=== PATIENT | female | born 1930 | race Caucasian/White ===

== ENCOUNTER → 2016-05-27 | Day surgery (SDC) | payer MEDICARE ==
[~2016-05-27] MED LIST: ARTIFICIAL TEARS OPTH OINT 3.5 APPLIC/3.5 GM TUBO ONE; BALANCED SALT SOLN OPHT IRRIG 15 ML BTL ONE; ENAL10TA7 PO; GLIM2TAB PO; LACTATED RINGER'S 1000 ML INJ 1,000 ML ONE; LIDOCAINE 1%/EPINEPHrine 1:100,000 SOLN 30 ML VIAL OTHER ONE; METF-324 PO; NEOMYCIN/POLYMYXIN/BACITRACIN OINT 15 GM TUBE ONE; ONDANSETRON HCL 4 MG/2 ML VIAL IV PUSH ONE; PROPOFOL 200 MG/20 ML AMP IV ONE; TAB-TAB PO; THYR30 PO; TRAD5TAB PO; VITA10002 PO; VITA20002 PO; ceFAZolin 2 GM PREMIX 50 ML ONE
--- NOTE | 2016-05-29 11:33 | MP ---
cc: DANIELE MALONE M.D. DATE OF SURGERY 05/27/2016 PREOPERATIVE DIAGNOSES 1. Squamous cell carcinoma left nose. 2. Squamous cell carcinoma left advent. 3. New lesion left eyebrow. 4. New lesion right cheek. POSTOPERATIVE DIAGNOSIS 1. Squamous cell carcinoma left nose. 2. Squamous cell carcinoma left advent. 3. New lesion left eyebrow. 4. New lesion right cheek. OPERATION 1. Excision left nose squamous cell carcinoma, frozen section, full-thickness skin graft from left neck. 1.5 cm diameter 2. Excision squamous cell carcinoma left advent frozen section, full-thickness skin graft from left neck. 2.5x 1.5 cm excision 3. Excision lesion left eyebrow frozen section, full-thickness skin graft with hair bearing skin from the left neck. 1.0 x 0.8 c, 4. Shave biopsy lesion right cheek. 1.[address] Malone ANESTHESIA General INDICATIONS This is an 85-year-old white female with multiple facial biopsy-proven squamous cell carcinomas, two involving the left nose and the left advent, also suspicious lesion on the left eyebrow and right side cheek. The patient agreed to undergo excision frozen section and reconstruction only with a full-thickness skin graft. She understands that the graft may or may not take and overall the graft may not match the anatomic areas, but she is okay with the appearance of the graft in the long run. PROCEDURE The patient was brought to the operating room was given supine position. Anesthesia was started. Prep and drape was done. IV antibiotic had been given. The preoperative markings were reinforced. All the areas were tumesced with lidocaine with epi and saline solution. The specimens were excised full-thickness on the nose, on the advent and on the left eyebrow and they were all suture marked superior. The specimen on the right cheek was shaved partial thickness dermis think shave biopsy. The one on the left nose defect is approximately 1.5 cm in diameter, one on the left advent is 2.5 x 1.5, one on the left brow 1 cm x 0.8 cm and the right cheek excision is about 1.2 cm in diameter. The hemostasis was completed. A full-thickness skin graft was harvested starting from just behind the mastoid going both anterior into the hairline taking hair-bearing skin and the clean skin at the same time. The clean skin was used on the nose. The air bearing skin was used on the eyebrow to try and reconstruct some hair follicles and partial eyebrow hair bearing skin was used to reconstruct the advent. The right cheek was left open. The suturing was done with 5-0 Prolene. The donor site was closed with 4-0 Vicryl internal inverting sutures. The frozen section report issued indicated clear margins on all the first three and no clear residual tumor was noted. On number four, the lesion appeared to be in situ squamous cell carcinoma. The patient was given sterile dressing, was allowed to recover from anesthesia. Intraoperative blood loss less than 10-15 cc. No complications. signed, not fully reviewed MD ZACHARY Augustin/JOSE /11:23 AM /11:23 AM DONNA
== END | disposition home or self-care (01) ==
LOC: ESDC 07:55
PROVIDERS: ATTEND Plastic Surgery
DX: C44.321 Squamous cell carcinoma of skin of nose (principal); C44.329 Squamous cell carcinoma of skin of other parts of face; D04.39 Carcinoma in situ of skin of other parts of face; L57.0 Actinic keratosis
CPT/HCPCS: 00300; 11100; 11442; 11642; 11643; 15240; 15260; 88305; 88331; J0690; J2405; J3010; J7120